=== PATIENT | male | born 1970 | race Caucasian/White ===

== ENCOUNTER 2022-06-06 05:55 | Outpatient (CLI) | payer BC ==
[~2022-06-06] VITALS: Ht 180.3 cm; Wt 116.6 kg
[2022-06-06] MEDS ORDERED: ESCI20TA39 PO (13:31)
== END 2022-06-06 13:32 | disposition home or self-care (01) ==
LOC: PREOP 05:55
PROVIDERS: ATTEND Internal Medicine
DX: Z01.818 Encounter for other preprocedural examination (principal)

== ENCOUNTER 2022-06-08 10:16 | Day surgery (SDC) | payer BC ==
--- NOTE | 2022-06-07 20:31 | HISTORY AND PHYSICAL ---
DATE OF SERVICE: COLONOSCOPY HISTORY AND PHYSICAL HISTORY OF PRESENT ILLNESS: The patient is a 51-year-old white male referred for his first screening colonoscopy. He is deemed to be of average risk as he is not aware of any family history of colon cancer, although he does believe his father had some colon polyps removed. He denies bright red blood per rectum, melena, abdominal pain, diarrhea, constipation or change in bowel habit. He reports that he has been feeling well. He is currently not taking any prescription medication. PAST MEDICAL HISTORY: Other than overweight status is unremarkable. He had a torn ligament in the right knee and underwent arthroscopic surgery in 1987 reporting no other surgeries. SOCIAL HISTORY: He reports no past smoking history with occasional small volume alcohol consumption on the weekends. FAMILY HISTORY: Father of Hodgkin's lymphoma at the age of 41. Mother living at the age of 74 with hypertension. He has one sister with diabetes in her mid 40s and two brothers, one in the early 40s and other in the early 50s that have no reported health problems. PHYSICAL EXAMINATION: GENERAL: Reveals a white male, appears to be in no acute distress. VITAL SIGNS: Blood pressure 130/88. Weight at 257.8 pounds. HEENT: Unremarkable. Mallampati 3 pharyngeal configuration. CHEST: Clear to auscultation. CARDIOVASCULAR: Reveals regular rate and rhythm without murmur, S3 or S4. ABDOMEN: Soft, supple without mass, organomegaly or tenderness. EXTREMITIES: Reveal no cyanosis, clubbing or edema. ASSESSMENT AND PLAN: The patient is being set up for his first screening colonoscopy, deemed to be of average risk. Prep instructions with [employer] were given and questions were answered. Job ID: [id number] DocumentID: [id number] Dictated Date: 06/04/2022 15:04:38 Color Mixer Date: 06/04/2022 15:20:55 Dictated By: PETRA MIMS MD
[~2022-06-08] VITALS: Ht 180 cm; Wt 116.6 kg
[~2022-06-08 10:16] MED LIST: ESCI20TA39 PO
[2022-06-08] MEDS ORDERED: LACTATED RINGERS 1,000 ML IV STA (10:22)
[2022-06-08 10:45] VITALS: BP 141/91
--- NOTE | 2022-06-08 10:53 | Pre-Op Note & Conscious Sedat ---
Pre-Operative Progress Note Date H&P Reviewed: Jun 08, 2022 Time H&P Reviewed: 10:53 Pre-Op Diagnosis: screening Conscious Sedation Pre-Proced ASA Score 1 For ASA 3 and 4: Consider anesthesia and medical clearance. Also, for patients with a history of failed moderate sedation consider anesthesia. Airway Lungs Heart ASA score ASA 1: a normal healthy patient ASA 2: a patient with a mild systemic disease (mid diabetes, controlled hypertension, obesity ASA 3: a patient with a severe systemic disease that limits activity (angina, COPD, prior Myocardial infarction) ASA 4: a patient with an incapacitating disease that is a constant threat to life (CHF, renal failure) ASA 5: a moribund patient not expected to survive 24 hrs. (ruptured aneurysm) ASA 6: a declared brain- patient whose organs are being harvested. For emergent operations, add the letter E after the classification Mallampati Classification Grade 2 Sedation Plan Analgesia, Amnesia, Plan communicated to team members, Discussed options with patient/fam, Discussed risks with patient/fam The patient is an appropriate candidate to undergo the planned procedure, sedation, and anesthesia. The patient immediately re-assessed prior to indication. PETRA MIMS MD Jun 08, 2022 10:53
[2022-06-08] MEDS ORDERED: PROPOFOL INJECTION 50 ML IV ONE (11:23)
[2022-06-08] MEDS ORDERED: MIDAZOLAM 2 MG/2 ML (VERSED) VIAL ONE (11:23)
[2022-06-08 11:55] VITALS: BP 118/69
--- NOTE | 2022-06-08 11:59 | Progress Note-Post Operative ---
Post-Procedure Note Physician (s)/Package Clerk (s) Physician PETRA MIMS MD Pre-Procedure Diagnosis Pre-Procedure Diagnosis: screening Post-Procedure Diagnosis Post-operative diagnosis: one 1 com polyp removed via snare from rectosigmoid junction with and otherwise normal colon PETRA MIMS MD Jun 08, 2022 11:59
[2022-06-08 12:00] VITALS: BP 123/71
[2022-06-08 12:25] VITALS: BP 115/75
--- NOTE | 2022-06-08 13:11 | Anesthesia-General Post-Op ---
MAC Patient Condition Mental Status/LOC: Same as Preop Cardiovascular: Satisfactory Nausea/Vomiting: Absent Respiratory: Satisfactory Pain: Controlled Complications: Absent Post Op Complications Complications None Follow Up Care/Instructions Patient Instructions None needed. Anesthesiology Discharge Order Discharge Order Patient is doing well, no complaints, stable vital signs, no apparent adverse anesthesia problems. No complications reported per nursing. YULISSA ARREOLA CRNA Jun 08, 2022 13:11
--- NOTE | 2022-06-08 22:10 | OPERATIVE REPORT ---
DATE OF SERVICE: COLONOSCOPY SUMMARY INDICATION FOR THE PROCEDURE: Screening. PRIMARY CARE PHYSICIAN: Petra iMms MD The patient was placed in the left lateral decubitus position. Prior to undergoing colonoscopy, digital rectal evaluation was performed. Anal sphincter tone was normal and the perianal reflexes intact. The colonoscope was then inserted into the rectum and under direct visualization advanced to cecum. The cecum was identified by identification of ileocecal valve and cecal strap. Photographic documentation was obtained. Careful inspection was made as colonoscope withdrawn. Quality of prep was good. FINDINGS: No evidence for internal or external hemorrhoids and the rectum was unremarkable. The prostate was unremarkable to digital inspection. Present in the rectosigmoid junction was a pedunculated approximately 1 cm polyp. It was snared and removed in its entirety with no blood loss at the time of the procedure. The sigmoid colon, descending colon, splenic flexure, transverse colon, hepatic flexure, ascending colon, and cecum were unremarkable. No evidence for diverticular disease was noted. ASSESSMENT: Pedunculated adenomatous appearing polyp was removed via snare from the rectosigmoid junction with otherwise unremarkable colonoscopy to the cecum. As long as there are no surprises on histopathology report, we will advocate repeat surveillance colonoscopy in one year. Job ID: [id number] DocumentID: [id number] Dictated Date: 06/08/2022 11:55:45 Technical Sales Director Date: 06/08/2022 22:09:18 Dictated By: PETRA MIMS MD
== END 2022-06-08 12:33 | disposition home or self-care (01) ==
LOC: ENDO 10:16
PROVIDERS: ATTEND Internal Medicine
DX: Z12.11 Encounter for screening for malignant neoplasm of colon (principal); K63.5 Polyp of colon